=== PATIENT | female | born 1950 | race Two or more races ===

== ENCOUNTER 2018-10-28 08:43 | Outpatient (CLI) | payer OTHER | END 2018-10-28 08:48 | disposition home or self-care (01) | LOC: RAD 08:43 | DX: I70.0 Atherosclerosis of aorta (principal); I51.7 Cardiomegaly; J44.9 Chronic obstructive pulmonary disease, unspecified ==

== ENCOUNTER → 2018-11-04 | Outpatient (CLI) | payer OTHER | END | disposition home or self-care (01) | LOC: NUCLEAR 14:27 | DX: M81.0 Age-related osteoporosis without current pathological fracture (principal) ==

== ENCOUNTER 2018-11-12 12:50 | Outpatient (CLI) | payer OTHER | END 2018-11-12 12:52 | disposition home or self-care (01) | LOC: SONOGRAMA 12:50 → MAMO-SONO 13:45 | DX: D44.0 Neoplasm of uncertain behavior of thyroid gland (principal); E04.8 Other specified nontoxic goiter ==

== ENCOUNTER 2019-08-17 09:43 | Outpatient (CLI) | payer OTHER | END 2019-08-17 09:47 | disposition home or self-care (01) | LOC: SONOGRAMA 09:43 | DX: N93.8 Other specified abnormal uterine and vaginal bleeding (principal) ==

== ENCOUNTER 2019-09-28 12:00 | Day surgery (SDC) | payer OTHER ==
[~2019-09-28 12:00] MED LIST: COZAAR25 MG PO; SYNTHROID50 MCG PO; ZOCOR PO
== END 2019-09-28 20:55 | disposition home or self-care (01) ==
LOC: CIR.AMB 12:00
DX: D26.1 Other benign neoplasm of corpus uteri (principal)

== ENCOUNTER 2020-11-27 14:50 | Outpatient (CLI) | payer OTHER | END 2020-11-27 15:00 | disposition home or self-care (01) | LOC: NUCLEAR 14:50 | PROVIDERS: ATTEND General Practice | DX: M81.0 Age-related osteoporosis without current pathological fracture (principal) ==

== ENCOUNTER 2021-06-18 07:41 | Outpatient (CLI) | payer OTHER | END 2021-06-18 07:46 | disposition home or self-care (01) | LOC: RAD 07:41 | DX: R07.89 Other chest pain (principal); Z01.818 Encounter for other preprocedural examination ==